=== PATIENT | male | born 1955 | race Hispanic/Latino ===

== ENCOUNTER 2017-08-18 14:31 | Outpatient (CLI) | payer OTHER ==
[~2017-08-18 14:31] MED LIST: Gadobenate Dimeglumine 529 MG/1 ML (20ML VIAL) ONE
--- NOTE | 2017-08-19 12:17 | MRI ---
MRI PELVIS WITH AND WITHOUT IV CONTRAST: INDICATIONS: Concern for prostate malignancy. TECHNIQUE: Multiplanar, multisequence MR images were obtained of the pelvis with and without contrast, utilizing 15 mL of MultiHance. Prostate cancer specific protocol was utilized. The examination was evaluated utilizing an external [employer] work station for a full multiparametric evaluation. FINDINGS: The prostate measures 5 x 4.7 x 5.6 cm, for a total prostatic volume of 69.28 mL. No suspicious region of restricted diffusion is seen within the peripheral zone. There is marked exp ansion of the central zone of the prostate, consistent with changes of BPH. There are numerous multi ple prominent BPH nodules, one seen extending and protruding into the base of the bladder. No suspic ious T2 signal abnormality is grossly evident within the heterogeneous region of the central zone. T here is some rapid washout seen within the central aspect of the transition zone, which can be seen w ith BPH. No pathologically enlarged lymph node is evident. A small amount of cystic fluid-filled distention i s seen within the distal aspect of the right inguinal canal, extending into the right scrotal region, which may reflect fluid within a patent processus vaginalis and related to a possible hydrocele. Sc rotal ultrasound may be helpful for additional evaluation. No definite bone marrow signal abnormalit y is evident. IMPRESSION: PI-RADS category 2-Low (clinically significant cancer is unlikely to be present). Fluid signal cystic abnormality partially seen in the right inguinal region, suspicious for fluid toño led hernia sac or fluid in patent processus vaginalis. Scrotal ultrasound recommended. POS: [facility]
== END 2017-08-18 14:32 | disposition home or self-care (01) ==
LOC: TBSIIMAG 14:31
PROVIDERS: ATTEND Urology
DX: C61 Malignant neoplasm of prostate (principal); R93.41 Abnormal radiologic findings on diagnostic imaging of renal pelvis, ureter, or bladder
CPT/HCPCS: 72197; 82565; A9579

== ENCOUNTER 2018-09-13 13:39 | Outpatient (CLI) | payer OTHER ==
[2018-09-13] MEDS ORDERED: Gadobenate Dimeglumine 529 MG/1 ML (20ML VIAL) ONE (15:00)
--- NOTE | 2018-09-14 08:08 | MRI ---
MRI PROSTATE WITH AND WITHOUT CONTRAST: HISTORY: Prostate cancer. COMPARISON: 08/18/2017 TECHNIQUE: Multiplanar, multisequence MRI images were obtained of the prostate with and without IV contrast. FINDINGS: There is moderate hypertrophy of the central gland, consistent with BPH. No suspicious low T2 signal lesion is seen in the prostate. No restricted diffusion or low signal on the ADC map is seen in the peripheral zone of the prostate. The seminal vesicles are intact. The neurovascular bundles are intact. No pelvic adenopathy is seen . There is a well circumscribed high T2 signal focus in the right inguinal canal, which may represent a small hydrocele or cyst within the inguinal canal. No marrow signal abnormality is present. No abn ormal enhancement is seen. IMPRESSION: PI-RADS category 2-Low likelihood that a clinically significant cancer is present. POS: [facility]
== END 2018-09-13 13:40 | disposition home or self-care (01) ==
LOC: TBSIIMAG 13:39
PROVIDERS: ATTEND Urology
DX: C61 Malignant neoplasm of prostate (principal)
CPT/HCPCS: 72197; 82565; A9577

== ENCOUNTER 2019-12-28 09:33 | Outpatient (CLI) | payer MEDICARE, OTHER ==
[2019-12-28] MEDS ORDERED: Magnevist 469MG/ML 20 ML VIAL ONE (14:47)
--- NOTE | 2019-12-28 15:12 | MRI ---
EXAM: MRI of the pelvis/prostate without and with contrast HISTORY: Prostate cancer COMPARISON: 09/13/2018 TECHNIQUE: Multiplanar multisequence MR images were obtained of the pelvis without and with IV contra st. Evaluation of this exam was performed with a [employer] workstation. FINDINGS: Central gland: Moderate hypertrophy of the central gland consistent with BPH. Prostate volume is abhijeet mated at 54 mL. No suspicious low T2 signal lesion is seen. Peripheral zone: No restricted diffusion is seen. No low signal on ADC map. Seminal vesicles: Intact without abnormality Neurovascular bundles: Intact Pelvic lymph nodes: No pelvic adenopathy Other visualized intrapelvic structures: There is a stable well-circumscribed focus of high T2 signal in the right inguinal canal which may represent a small hydrocele or cyst in the inguinal canal. Osseous structures: No marrow signal abnormality IMPRESSION: PI-RADS Category 2-low likelihood that a clinically significant cancer is present.
== END 2019-12-28 09:34 | disposition home or self-care (01) ==
LOC: TBSIIMAG 09:33
PROVIDERS: ATTEND Urology
DX: C61 Malignant neoplasm of prostate (principal)
CPT/HCPCS: 72197; A9579